=== PATIENT | male | born 1935 | race Asian ===

== ENCOUNTER → 2016-07-28 | Outpatient (CLI) | payer OTHER ==
[~2016-07-28] MED LIST: ADV250 IH; ALBU8HFA4 IH; ALLO100T PO; ASCO500 PO; GABA-531 PO; LOSA50TA37 PO; METF500T4 PO; MONT10TA21 PO; PYRI1I PO; SIMV-260 PO
== END | disposition home or self-care (01) ==
LOC: RESP 09:31
PROVIDERS: ATTEND Internal Medicine Critical Care Medicine
DX: J44.9 Chronic obstructive pulmonary disease, unspecified (principal)
CPT/HCPCS: 94010; 94726; 94727; 94729